=== PATIENT | male | born 1960 | race Caucasian/White ===

== ENCOUNTER 2017-09-27 06:04 | Inpatient (IN) | payer BC ==
[~2017-09-27 06:04] MED LIST: Lactated Ringers 1,000 ML IV SCH; Lidocaine 1%/Sod Bicarbonate in NS 8.4% 1 ML Syringe IV PRN; Sodium Chloride 0.9% 10 ML Syringe FLUSH PRN
[2017-09-27] MEDS ORDERED: Vancomycin 1 GM SDV ONE (06:18)
[2017-09-27] MEDS ORDERED: Cyclobenzaprine 10 MG Tab PO PRN (06:23)
[2017-09-27] MEDS ORDERED: Ketorolac 15 MG/ML SDV IVPUSH PRN (06:23)
[2017-09-27] MEDS ORDERED: Magnesium Hydroxide 400 MG/5 ML Susp 30 ML Cup PO PRN (06:24)
[2017-09-27] MEDS ORDERED: Naloxone 0.4 MG/ML SDV IVPUSH PRN (06:24)
[2017-09-27] MEDS ORDERED: diphenhydrAMINE 50 MG/ML SDV IVPUSH PRN (06:24)
[2017-09-27] MEDS ORDERED: Morphine 4 MG/ML Syringe IVPUSH PRN (06:24)
[2017-09-27] MEDS ORDERED: Sennosides 8.6 MG Tab PO PRN (06:24)
[2017-09-27] MEDS ORDERED: Bisacodyl 5 MG Tab PO PRN (06:24)
[2017-09-27] MEDS ORDERED: ceFAZolin 2 GM in Premix Bag 1 BAG IV SCH (06:30)
[2017-09-27] MEDS ORDERED: Morphine PF 1 MG/ML Amp ONE (06:38)
[2017-09-27] MEDS ORDERED: Ondansetron 4 MG/2 ML SDV ONE (06:45)
[2017-09-27] MEDS ORDERED: fentaNYL 100 MCG/2 ML SDV ONE (06:46)
[2017-09-27] MEDS ORDERED: Midazolam 1 MG/ML 2 ML SDV ONE (06:46)
[2017-09-27] MEDS ORDERED: Propofol 200 MG/20 ML SDV ONE ×4 (06:46→08:54)
[2017-09-27] MEDS ORDERED: ceFAZolin 1 GM Vial ONE (06:47)
--- NOTE | 2017-09-27 06:58 | PCM.PREANE ---
Preanesthetic Assessment - Anesthesia/Transfusion/Family Hx Anesthesia History: Prior Anesthesia Without Reaction Family History of Anesthesia Reaction: No Transfusion History: No Prior Transfusion(s) - Review of Systems General: No Symptoms Pulmonary: No Symptoms Cardiovascular: No Symptoms Gastrointestinal: No Symptoms Neurological: No Symptoms Other: Reports: None - Physical Assessment NPO Status Date: 09/26/17 NPO Status Time: 23:30 Pulse: 84 O2 Sat by Pulse Oximetry: 91 Respiratory Rate: 16 Blood Pressure: 122/90 Temperature: 36.6 C Vital Signs: Last Vital Signs Temp 36.6 C 09/27/17 06:15 Pulse 84 09/27/17 06:15 Resp 16 09/27/17 06:15 BP 122/90 09/27/17 06:15 Pulse Ox 91 L 09/27/17 06:15 Height: 1.88 m Weight: 93.894 kg ASA Class: 2 Mental Status: Alert & Oriented x3 Airway Class: Mallampati = 1 Dentition: Reports: Normal Dentition, August(s) Thyro-Mental Finger Breadths: 3 Mouth Opening Finger Breadths: 3 ROM/Head Extension: Full Lungs: Clear to Auscultation, Normal Respiratory Effort Cardiovascular: Regular Rate, Regular Rhythm, No Murmurs - Lab Values: Laboratory Last Values MRSA (PCR) Negative 09/07/17 10:20 - Allergies Allergies/Adverse Reactions: Allergies Allergy/AdvReac Type Severity Reaction Status Date / Time amoxicillin Allergy Fever Verified 09/26/17 11:08 - Acknowledgements Anesthesia Type Planned: Spinal Pt an Appropriate Candidate for the Planned Anesthesia: Yes Alternatives and Risks of Anesthesia Discussed w Pt/Guardian: Yes Pt/Guardian Understands and Agrees with Anesthesia Plan: Yes PreAnesthesia Questionnaire HEENT History: Reports: Allergic Rhinitis, Impaired Vision, Other (See Below) Other HEENT History: otitis externa, wears glasses Cardiovascular History: Reports: High Cholesterol Respiratory History: Reports: Other (See Below) Other Respiratory History: bronchitis, cough Gastrointestinal History: Reports: None Genitourinary History: Reports: None [employer]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 Neurological History: Reports: Other (See Below) Other Neuro History: dizziness Psychiatric History: Reports: None Endocrine/Metabolic History: Reports: None Hematologic History: Reports: None Immunologic History: Reports: None Oncologic (Cancer) History: Reports: None Dermatologic History: Reports: None - Past Surgical History Head Surgeries/Procedures: Reports: None HEENT Surgical History: Reports: Naso-Sinus Surgery, Tonsillectomy Cardiovascular Surgical History: Reports: None Respiratory Surgical History: Reports: None GI Surgical History: Reports: Colonoscopy Male Surgical History: Reports: Vasectomy Endocrine Surgical History: Reports: None Musculoskeletal Surgical History: Reports: Other (See Below) Other Musculoskeletal Surgeries/Procedures:: foot surgery, knee surgery Dermatological Surgical History: Reports: None - SUBSTANCE USE Smoking Status *Q: Never Smoker Second Hand Smoke Exposure: No Recreational Drug Use History: No - HOME MEDS Home Medications: Home Meds Cholecalciferol (Vitamin D3) [Vitamin D3] 1,000 units PO DAILY 09/26/17 [History ] Fluticasone Propionate [Flonase] 1 spray NASBOTH DAILY 09/26/17 [History] Omeprazole Magnesium [Prilosec Otc] 20 mg PO Q48H 09/26/17 [History] - CURRENT (IN HOUSE) MEDS Current Meds: Current Medications Aspirin (Ecotrin) 325 mg PO BID NA Bisacodyl (Dulcolax) 5 mg PO DAILY PRN PRN Reason: Constipation Morphine Sulfate 8 mg/Epinephrine HCl 0.3 mg/Cefuroxime Sodium 750 mg/Ketorolac Tromethamine 30 mg/Sodium Chloride 27.9 ml 0 mg .XX ONETIME ONE Stop: 09/27/17 06:24 Cyclobenzaprine HCl (Flexeril) 10 mg PO TID PRN PRN Reason: Spasms Diphenhydramine HCl (Benadryl) 25 mg IVPUSH Q4H PRN PRN Reason: Nausea Docusate Sodium (Colace) 100 mg PO BID NA Famotidine (Pepcid) 20 mg PO Q12H [facility] Lactated Ringer's (Ringers, Lactated) 1,000 mls @ 125 mls/hr IV ASDIRECTED [facility] Last Admin: 09/27/17 06:35 Dose: 125 mls/hr Cefazolin Sodium/Dextrose 2 gm (/ Premix) 50 mls @ 100 mls/hr IV Q8H [facility] Stop: 09/27/17 22:59 Ketorolac Tromethamine (Toradol) 15 mg IVPUSH Q6H PRN PRN Reason: Pain Lidocaine/Sodium Bicarbonate (Buffered Lidocaine 1% In Ns 8.4%) 0.25 ml IV ONETIME PRN PRN Reason: Prior to IV Start Last Admin: 09/27/17 06:35 Dose: 0.25 ml Magnesium Hydroxide (Milk Of Magnesia) 30 ml PO BID PRN PRN Reason: Constipation Morphine Sulfate (Morphine) 2 mg IVPUSH Q2H PRN PRN Reason: Breakthrough Pain Naloxone HCl (Narcan) 0.1 mg IVPUSH Q5M PRN PRN Reason: Oversedation Ondansetron HCl (Zofran) 4 mg IVPUSH Q6H PRN PRN Reason: Nausea/Vomiting Oxycodone/Acetaminophen (Percocet 325-5 Mg) 1 - 2 tab PO Q4H PRN PRN Reason: Pain Senna (Senna) 8.6 mg PO BID PRN PRN Reason: Constipation Sodium Chloride (Saline Flush) 10 ml FLUSH ASDIRECTED PRN PRN Reason: Keep Vein Open Discontinued Medications Bupivacaine HCl (Marcaine 0.25%) Confirm Administered Dose 30 ml .ROUTE .STK- MED ONE Stop: 09/27/17 06:19 Cefazolin Sodium (Ancef) Confirm Administered Dose 2 gm .ROUTE .STK-MED ONE Stop: 09/27/17 06:19 Cefazolin Sodium (Ancef) Confirm Administered Dose 2 gm .ROUTE .STK-MED ONE Stop: 09/27/17 06:48 Fentanyl (Sublimaze) Confirm Administered Dose 100 mcg .ROUTE .STK-MED ONE Stop: 09/27/17 06:47 Iodine (Iodine 2% Mild Tincture) Confirm Administered Dose 30 ml .ROUTE .STK- MED ONE Stop: 09/27/17 06:19 Midazolam HCl (Versed 1 Mg/Ml) Confirm Administered Dose 2 mg .ROUTE .STK-MED ONE Stop: 09/27/17 06:47 Morphine Sulfate (Duramorph Pf) Confirm Administered Dose 1 mg .ROUTE .STK-MED ONE Stop: 09/27/17 06:39 Ondansetron HCl (Zofran) Confirm Administered Dose 4 mg .ROUTE .STK-MED ONE Stop: 09/27/17 06:46 Propofol (Diprivan 20 Ml) Confirm Administered Dose 200 mg .ROUTE .STK-MED ONE Stop: 09/27/17 06:47 Tranexamic Acid (Cyklokapron) Confirm Administered Dose 1,000 mg .ROUTE .STK- MED ONE Stop: 09/27/17 06:19 Vancomycin HCl (Vancomycin) Confirm Administered Dose 1 gm .ROUTE .STK-MED ONE Stop: 09/27/17 06:19
[2017-09-27] MEDS ORDERED: Lactated Ringers 1,000 ML ONE ×2 (07:36→09:02)
[2017-09-27] MEDS: Bupivacaine 0.25% 30 ML SDV ONE ×2 (07:48→08:28)
[2017-09-27] MEDS: ceFAZolin 1 GM Vial ONE ×2 (07:49→08:23)
[2017-09-27] MEDS: Iodine/Sodium Iodide 2% Tincture 30 ML Bottle ONE ×2 (07:49→08:19)
[2017-09-27] MEDS: Morphine 8 MG, EPINEPHrine 0.3 MG, Cefuroxime 750 MG, Ketorolac 30 MG, Sodium Chloride ... ONE ×10 (08:27→21:18)
[2017-09-27] MEDS ORDERED: fentaNYL 100 MCG/2 ML SDV IVPUSH PRN (09:17)
--- NOTE | 2017-09-27 09:19 | PCM.POSTAN ---
POST ANESTHESIA ASSESSMENT - MENTAL STATUS Mental Status: Somnolent - VITAL SIGNS Pulse Rate: 90 SaO2: 95 Resp Rate: 11 Blood Pressure: 119/67 Temperature: 36.1 C - RESPIRATORY Respiratory Status: Respiratory Rate WNL, Airway Patent, O2 Saturation Stable, Supplemental Oxygen - CARDIOVASCULAR CV Status: Pulse Rate WNL, Blood Pressure Stable - GASTROINTESTINAL GI Status: No Symptoms - PAIN Pain Score: 0 - POST OP HYDRATION Hydration Status: Adequate & Stable - OBSERVATIONS Free Text/Narrative:: no anesthesia complications noted
[2017-09-27] MEDS ORDERED: Pantoprazole 40 MG Tab.CR PO SCH (11:00)
--- NOTE | 2017-09-27 11:19 | CR ---
Left knee: AP and lateral views of the left knee were obtained. Comparison: No prior knee exam. Knee prosthesis is seen. Components are aligned. Soft tissue air is noted from the surgical procedure. Underlying bony structures are intact. Impression: 1. Satisfactory radiographic appearance of recently placed left knee prosthesis. Diagnostic code #2
[2017-09-27] MEDS: Acetaminophen/oxyCODONE 325-5 MG Tab PO PRN ×3 (14:20→23:45)
[2017-09-27] MEDS: ceFAZolin 2 GM in Premix Bag 1 BAG IV SCH ×2 (14:21→23:41)
[2017-09-27] MEDS: Ondansetron 4 MG/2 ML SDV IVPUSH PRN ×2 (15:23→23:56)
[2017-09-27] MEDS: Famotidine 20 MG Tab PO SCH ×2 (18:38→21:18)
--- NOTE | 2017-09-27 20:28 | PCM.CONS ---
H&P History of Present Illness - General Date of Service: 09/27/17 Admit Problem/Dx: Admission Diagnosis/Problem Admission Diagnosis/Problem Osteoarthritis of knee Source of Information: Patient, Old Records, RN, RN Notes Reviewed, Other ( Surgical notes) History Limitations: Reports: No Limitations - History of Present Illness Initial Comments - Free Text/Narative: Ric Bowens is a 57 yo male patient of Dr. Carvalho who is post-operative day 0 of left TKA. Hospital medicine was consulted for post-operative medical care. At this time he is resting comfortably in bed. Pain is controlled. He denies any chest pain, shortness of breath, palpitations, or vomiting. He did report some nausea about a hour ago which has resolved. He carries a history of: Impaired vision and HLD. He was never a smoker. He is a full code. His primary care provider is Dr. Frost. Left Knee Pain Score (Numeric/FACES): 0 - Related Data Allergies/Adverse Reactions: Allergies Allergy/AdvReac Type Severity Reaction Status Date / Time amoxicillin Allergy Fever Verified 09/27/17 17:52 Home Medications: Home Meds Cholecalciferol (Vitamin D3) [Vitamin D3] 1,000 units PO DAILY 09/26/17 [History ] Fluticasone Propionate [Flonase] 1 spray NASBOTH DAILY 09/26/17 [History] Omeprazole Magnesium [Prilosec Otc] 20 mg PO Q48H 09/26/17 [History] Past Medical History HEENT History: Reports: Allergic Rhinitis, Impaired Vision, Other (See Below) Other HEENT History: otitis externa, wears glasses Cardiovascular History: Reports: High Cholesterol Respiratory History: Reports: Other (See Below) Other Respiratory History: bronchitis, cough Gastrointestinal History: Reports: None Genitourinary History: Reports: None 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 Neurological History: Reports: Other (See Below) Other Neuro History: dizziness Psychiatric History: Reports: None Endocrine/Metabolic History: Reports: None Hematologic History: Reports: None Immunologic History: Reports: None Oncologic (Cancer) History: Reports: None Dermatologic History: Reports: None - Past Surgical History Head Surgeries/Procedures: Reports: None HEENT Surgical History: Reports: Naso-Sinus Surgery, Tonsillectomy Cardiovascular Surgical History: Reports: None Respiratory Surgical History: Reports: None GI Surgical History: Reports: Colonoscopy Male Surgical History: Reports: Vasectomy Endocrine Surgical History: Reports: None Musculoskeletal Surgical History: Reports: Other (See Below) Other Musculoskeletal Surgeries/Procedures:: foot surgery, knee surgery Dermatological Surgical History: Reports: None Social & Family History - Tobacco Use Smoking Status *Q: Never Smoker Second Hand Smoke Exposure: No - Caffeine Use Caffeine Use: Reports: Soda - Recreational Drug Use Recreational Drug Use: No H&P Review of Systems - Review of Systems: Review Of Systems: See Below General: Reports: No Symptoms. Denies: Fever, Chills, Malaise, Weakness, Fatigue HEENT: Reports: No Symptoms. Denies: Rhinitis, Sinus Congestion, Sore Throat, Visual Changes Pulmonary: Reports: No Symptoms. Denies: Shortness of Breath, Wheezing, Pleuritic Chest Pain, Cough, Sputum Cardiovascular: Reports: No Symptoms, Blood Pressure Problem. Denies: Chest Pain, Palpitations, Dyspnea on Exertion, Lightheadedness Gastrointestinal: Reports: Nausea (resolved ). Denies: Constipation, Diarrhea, Vomiting Genitourinary: Reports: No Symptoms Musculoskeletal: Reports: Joint Pain (left knee - currently absent. ) Skin: Reports: No Symptoms Psychiatric: Reports: No Symptoms Neurological: Reports: No Symptoms Hematologic/Lymphatic: Reports: No Symptoms Immunologic: Reports: No Symptoms Exam - Exam Exam: See Below - Vital Signs Vital Signs: Last Vital Signs Temp 99.7 F 09/27/17 18:35 Pulse 83 09/27/17 18:35 Resp 14 09/27/17 18:35 BP 105/66 09/27/17 18:35 Pulse Ox 94 L 09/27/17 18:35 Weight: 207 lb - Exam Quality Assessment: Supplemental Oxygen, DVT Prophylaxis General: Alert, Oriented, Cooperative. No: Mild Distress HEENT: Conjunctiva Clear, EACs Clear, EOMI, Hearing Intact, Mucosa Moist & [place] , Nares Patent, Normal Nasal Septum, Posterior Pharynx Clear, PERRLA Neck: Supple, Trachea Midline. No: JVD, Thyromegaly Lungs: Clear to Auscultation, Normal Respiratory Effort Cardiovascular: Regular Rate, Regular Rhythm GI/Abdominal Exam: Normal Bowel Sounds, Soft, Non-Tender, No Organomegaly, No Distention, No Abnormal Bruit, No Mass, Pelvis Stable (Male) Exam: Deferred Rectal (Males) Exam: Deferred Back Exam: Normal Inspection, Full Range of Motion Extremities: No Pedal Edema, Normal Capillary Refill, Other (Micky bandage in place on left leg. Bandage is dry and intact. Cooling device in place. ) Peripheral Pulses: 3+: Radial (L), Radial (R), Posterior Tibial (L), Posterior Tibial (R), Dorsalis Pedis (L), Dorsalis Pedis (R) Skin: Warm, Dry, Intact Neurological: Cranial Nerves Intact (Grossly) Neuro Extensive - Mental Status: Alert, Oriented x3, Normal Mood/Affect, Normal Cognition, Memory Intact Neuro Extensive - Motor, Sensory, Reflexes: CN II-XII Intact (Grossly) Psychiatric: Alert, Normal Affect, Normal Mood Consult PN Assessment/Plan POD#: 0 Procedures: Procedures ASSAY OF BLOOD LIPOPROTEIN (01/02/16) ASSAY OF LIPOPROTEIN (01/02/16) ASSAY OF PREALBUMIN (09/01/17) ASSAY OF SERUM ALBUMIN (09/01/17) CHEST X-RAY 2VW FRONTAL&LATL (02/22/17) COMPLETE CBC W/AUTO DIFF WBC (09/01/17) METABOLIC PANEL TOTAL CA (09/01/17) PROTHROMBIN TIME (09/01/17) ROUTINE VENIPUNCTURE (09/01/17) THROMBOPLASTIN TIME PARTIAL (09/01/17) (1) S/P total knee arthroplasty SNOMED Code(s): 9865300937265, 7892598851420 Code(s): Z96.659 - PRESENCE OF UNSPECIFIED ARTIFICIAL KNEE JOINT Priority: High Current Visit: Yes Qualifiers: Laterality: left Qualified Code(s): Z96.652 - Presence of left artificial knee joint (2) Osteoarthritis SNOMED Code(s): 834924557 Code(s): M19.90 - UNSPECIFIED OSTEOARTHRITIS, UNSPECIFIED SITE Priority: High Current Visit: Yes Qualifiers: Osteoarthritis location: knee Osteoarthritis type: primary Laterality: left Qualified Code(s): M17.12 - Unilateral primary osteoarthritis, left knee (3) HLD (hyperlipidemia) SNOMED Code(s): 50061350 Code(s): E78.5 - HYPERLIPIDEMIA, UNSPECIFIED Priority: Low Current Visit : No Qualifiers: Hyperlipidemia type: unspecified Qualified Code(s): E78.5 - Hyperlipidemia , unspecified Problem List Initiated/Reviewed/Updated: Yes Plan: I/P: Acute: S/P left total knee arthroplasty - post-operative day 0 -DVT prophylaxis and pain management per primary care team -PT/OT -IS/RT -Monitor oxygen saturation -Titrate oxygen as needed -Vital signs stable Osteoarthritis of left knee -Pain management per primary care team Chronic: Vision impairment HLD Plan: SW/CM for discharge planning GI prophylaxis Home medications as indicated Other orders as listed above Routine AM labs He is a full code. His PCP is Dr. Frost. Thank you for allowing us to participate in the care of this patient!! Requesting Provider: Dr. Carvalho Date Consult Requested: 09/27/17 Reason for Consult: Post-operative medical management Patient History Reviewed: Yes Admission H&P Reviewed: Yes
[2017-09-27] MEDS: Docusate Sodium 100 MG Cap PO SCH (21:19)
[2017-09-28] MEDS: Acetaminophen/oxyCODONE 325-5 MG Tab PO PRN ×3 (05:53→14:23)
[2017-09-28] MEDS: Famotidine 20 MG Tab PO SCH (05:54)
[2017-09-28] MEDS: ceFAZolin 2 GM in Premix Bag 1 BAG IV SCH (06:00)
--- NOTE | 2017-09-28 07:35 | PCM.CONSN ---
- General Info Date of Service: 09/28/17 Admission Dx/Problem (Free Text): Admission Diagnosis/Problem Admission Diagnosis/Problem Osteoarthritis of knee S/P Lt TKA, POD #1 Doing well, pain controlled, no nausea. Functional Status: Reports: Pain Controlled, Tolerating Diet, Ambulating, Urinating, Incentive Spirometry - Review of Systems General: Reports: No Symptoms HEENT: Reports: No Symptoms Pulmonary: Reports: No Symptoms Cardiovascular: Reports: No Symptoms Gastrointestinal: Reports: No Symptoms Genitourinary: Reports: No Symptoms Musculoskeletal: Reports: Leg Pain Skin: Reports: No Symptoms Neurological: Reports: No Symptoms Psychiatric: Reports: No Symptoms - Patient Data Vitals - Most Recent: Last Vital Signs Temp 99.1 F 09/28/17 06:00 Pulse 78 09/28/17 04:35 Resp 16 09/28/17 06:57 BP 97/53 L 09/28/17 04:35 Pulse Ox 96 09/28/17 06:57 Weight - Most Recent: 207 lb I&O - Last 24 Hours: Intake & Output 09/27/17 09/28/17 09/28/17 22:59 06:59 14:59 Intake Total 1750 2200 Output Total 225 150 Balance 1525 2050 Med Orders - Current: Current Medications Aspirin (Ecotrin) 325 mg PO BID [facility] Bisacodyl (Dulcolax) 5 mg PO DAILY PRN PRN Reason: Constipation Cholecalciferol (Vitamin D3) 1,000 units PO DAILY [facility] Cyclobenzaprine HCl (Flexeril) 10 mg PO TID PRN PRN Reason: Spasms Last Admin: 09/28/17 01:06 Dose: 10 mg Diphenhydramine HCl (Benadryl) 25 mg IVPUSH Q4H PRN PRN Reason: Nausea Docusate Sodium (Colace) 100 mg PO BID [facility] Last Admin: 09/27/17 21:19 Dose: 100 mg Flunisolide (Nasalide Nasal [place]) 0 ml NASBOTH BID [facility] Last Admin: 09/27/17 21:19 Dose: 2 spray Ketorolac Tromethamine (Toradol) 15 mg IVPUSH Q6H PRN PRN Reason: Pain Last Admin: 09/27/17 23:58 Dose: 15 mg Magnesium Hydroxide (Milk Of Magnesia) 30 ml PO BID PRN PRN Reason: Constipation Morphine Sulfate (Morphine) 2 mg IVPUSH Q2H PRN PRN Reason: Breakthrough Pain Naloxone HCl (Narcan) 0.1 mg IVPUSH Q5M PRN PRN Reason: Oversedation Ondansetron HCl (Zofran) 4 mg IVPUSH Q6H PRN PRN Reason: Nausea/Vomiting Last Admin: 09/27/17 23:56 Dose: 4 mg Oxycodone/Acetaminophen (Percocet 325-5 Mg) 1 - 2 tab PO Q4H PRN PRN Reason: Pain Last Admin: 09/28/17 05:53 Dose: 2 tab Pantoprazole Sodium (Protonix) 40 mg PO Q48H NA Last Admin: 09/27/17 13:04 Dose: 40 mg Senna (Senna) 8.6 mg PO BID PRN PRN Reason: Constipation Sodium Chloride (Saline Flush) 10 ml FLUSH ASDIRECTED PRN PRN Reason: Keep Vein Open Discontinued Medications Bupivacaine HCl (Marcaine 0.25%) Confirm Administered Dose 30 ml .ROUTE .STK- MED ONE Stop: 09/27/17 06:19 Last Admin: 09/27/17 08:28 Dose: 30 ml Cefazolin Sodium (Ancef) Confirm Administered Dose 2 gm .ROUTE .STK-MED ONE Stop: 09/27/17 06:19 Last Admin: 09/27/17 08:23 Dose: 2 gm Cefazolin Sodium (Ancef) Confirm Administered Dose 2 gm .ROUTE .STK-MED ONE Stop: 09/27/17 06:48 Morphine Sulfate 8 mg/Epinephrine HCl 0.3 mg/Cefuroxime Sodium 750 mg/Ketorolac Tromethamine 30 mg/Sodium Chloride 27.9 ml 0 mg .XX ONETIME ONE Stop: 09/27/17 07:31 Last Admin: 09/27/17 21:18 Dose: Not Given Famotidine (Pepcid) 20 mg PO Q12H [facility] Last Admin: 09/28/17 05:54 Dose: 20 mg Fentanyl (Sublimaze) Confirm Administered Dose 100 mcg .ROUTE .STK-MED ONE Stop: 09/27/17 06:47 Fentanyl (Sublimaze) 50 mcg IVPUSH Q5M PRN PRN Reason: PAIN Stop: 09/27/17 11:00 Lactated Ringer's (Ringers, Lactated) 1,000 mls @ 125 mls/hr IV ASDIRECTED [facility] Last Admin: 09/27/17 06:35 Dose: 125 mls/hr Lactated Ringer's (Ringers, Lactated) Confirm Administered Dose 1,000 mls @ as directed .ROUTE .STK-MED ONE Stop: 09/27/17 07:37 Lactated Ringer's (Ringers, Lactated) Confirm Administered Dose 1,000 mls @ as directed .ROUTE .STK-MED ONE Stop: 09/27/17 09:03 Cefazolin Sodium/Dextrose 2 gm (/ Premix) 50 mls @ 100 mls/hr IV Q8H [facility] Stop: 09/28/17 07:29 Last Admin: 09/28/17 06:00 Dose: 100 mls/hr Iodine (Iodine 2% Mild Tincture) Confirm Administered Dose 30 ml .ROUTE .STK- MED ONE Stop: 09/27/17 06:19 Last Admin: 09/27/17 08:19 Dose: 18 ml Lidocaine/Sodium Bicarbonate (Buffered Lidocaine 1% In Ns 8.4%) 0.25 ml IV ONETIME PRN PRN Reason: Prior to IV Start Last Admin: 09/27/17 06:35 Dose: 0.25 ml Midazolam HCl (Versed 1 Mg/Ml) Confirm Administered Dose 2 mg .ROUTE .STK-MED ONE Stop: 09/27/17 06:47 Morphine Sulfate (Duramorph Pf) Confirm Administered Dose 1 mg .ROUTE .STK-MED ONE Stop: 09/27/17 06:39 Ondansetron HCl (Zofran) Confirm Administered Dose 4 mg .ROUTE .STK-MED ONE Stop: 09/27/17 06:46 Propofol (Diprivan 20 Ml) Confirm Administered Dose 200 mg .ROUTE .STK-MED ONE Stop: 09/27/17 06:47 Propofol (Diprivan 20 Ml) Confirm Administered Dose 200 mg .ROUTE .STK-MED ONE Stop: 09/27/17 07:45 Propofol (Diprivan 20 Ml) Confirm Administered Dose 200 mg .ROUTE .STK-MED ONE Stop: 09/27/17 08:19 Propofol (Diprivan 20 Ml) Confirm Administered Dose 200 mg .ROUTE .STK-MED ONE Stop: 09/27/17 08:55 Tranexamic Acid (Cyklokapron) Confirm Administered Dose 1,000 mg .ROUTE .STK- MED ONE Stop: 09/27/17 06:19 Last Admin: 09/27/17 08:36 Dose: 1,000 mg Vancomycin HCl (Vancomycin) Confirm Administered Dose 1 gm .ROUTE .STK-MED ONE Stop: 09/27/17 06:19 Last Admin: 09/27/17 08:30 Dose: 1 gm - Exam Quality Assessment: Supplemental Oxygen (2L at time of note), DVT Prophylaxis General: Alert, Oriented, Cooperative, No Acute Distress HEENT: Pupils Equal, EOMI, Mucous Membr. Moist/[place] Neck: Supple Lungs: Clear to Auscultation, Normal Respiratory Effort Cardiovascular: Regular Rate, Regular Rhythm GI/Abdominal Exam: Normal Bowel Sounds, Soft, Non-Tender (Male) Exam: Deferred Extremities: Other (lt knee with verito wrap, ice. CMS + and = bilat to LE) Peripheral Pulses: 2+: Dorsalis Pedis (L), Dorsalis Pedis (R) Neurological: No New Focal Deficit Psy/Mental Status: Alert, Normal Affect, Normal Mood Consult PN Assessment/Plan POD#: 1 Procedures: Procedures ASSAY OF BLOOD LIPOPROTEIN (01/02/16) ASSAY OF LIPOPROTEIN (01/02/16) ASSAY OF PREALBUMIN (09/01/17) ASSAY OF SERUM ALBUMIN (09/01/17) CHEST X-RAY 2VW FRONTAL&LATL (02/22/17) COMPLETE CBC W/AUTO DIFF WBC (09/01/17) METABOLIC PANEL TOTAL CA (09/01/17) PROTHROMBIN TIME (09/01/17) ROUTINE VENIPUNCTURE (09/01/17) THROMBOPLASTIN TIME PARTIAL (09/01/17) (1) Osteoarthritis SNOMED Code(s): 054470658 Code(s): M19.90 - UNSPECIFIED OSTEOARTHRITIS, UNSPECIFIED SITE Priority: High Current Visit: Yes Qualifiers: Osteoarthritis location: knee Osteoarthritis type: primary Laterality: left Qualified Code(s): M17.12 - Unilateral primary osteoarthritis, left knee (2) S/P total knee arthroplasty SNOMED Code(s): 3235588977204, 9660767774459 Code(s): Z96.659 - PRESENCE OF UNSPECIFIED ARTIFICIAL KNEE JOINT Priority: High Current Visit: Yes Qualifiers: Laterality: left Qualified Code(s): Z96.652 - Presence of left artificial knee joint (3) HLD (hyperlipidemia) SNOMED Code(s): 64883369 Code(s): E78.5 - HYPERLIPIDEMIA, UNSPECIFIED Priority: Low Current Visit : No Qualifiers: Hyperlipidemia type: unspecified Qualified Code(s): E78.5 - Hyperlipidemia , unspecified Problem List Initiated/Reviewed/Updated: Yes Plan: I/P: S/P total knee arthroplasty, POD # 1, Cte - Pain management and DVT prophylax - PT/OT - RT/IS - Hgb 10.7 - VSS Chronic conditions: Hyperlipidemia Other: GI Prophylax CM/SW for DC planning- okay from hospitalist standpoint for discharge home today. Patient is full Code status.
[2017-09-28] MEDS: Docusate Sodium 100 MG Cap PO SCH (08:32)
[2017-09-28] MEDS ORDERED: Aspirin 325 MG Tab.EC PO SCH (09:00)
[2017-09-28] MEDS ORDERED: Cholecalciferol (Vitamin D3) 1,000 Unit Tab PO SCH (09:00)
[2017-09-28] MEDS ORDERED: Famotidine 20 MG Tab PO SCH (09:45)
--- NOTE | 2017-09-28 14:47 | PCM.SURGPN ---
- General Info Date of Service: 09/28/17 POD#: 1 Functional Status: Reports: Pain Controlled, Tolerating Diet, Ambulating, Urinating, Incentive Spirometry - Review of Systems Musculoskeletal: Reports: Other (The pt states his pain is controlled. He is prepared for discharge to home.) - Patient Data Vitals - Most Recent: Last Vital Signs Temp 98.8 F 09/28/17 12:30 Pulse 79 09/28/17 12:30 Resp 18 09/28/17 12:30 BP 107/71 09/28/17 12:30 Pulse Ox 93 L 09/28/17 12:30 Weight - Most Recent: 207 lb I&O - Last 24 Hours: Intake & Output 09/27/17 09/28/17 09/28/17 22:59 06:59 14:59 Intake Total 1750 2200 2580 Output Total 225 150 150 Balance 1525 2050 2430 Lab Results Last 24 Hrs: Laboratory Results - last 24 hr 09/28/17 09/28/17 Range/Units 07:25 07:25 WBC 7.46 (4.23-9.07) K/mm3 RBC 4.06 L (4.63-6.08) M/mm3 Hgb 10.7 L (13.7-17.5) gm/L Hct 32.5 L (40.1-51.0) % MCV 80.0 (79.0-92.2) fl MCH 26.4 (25.7-32.2) pg MCHC 32.9 (32.2-35.5) g/dl RDW Std Deviation 38.6 (35.1-43.9) fL Plt Count 162 L (163-337) K/mm3 MPV 9.3 L (9.4-12.3) fl Sodium 138 (136-145) mEq/L Potassium 4.0 (3.5-5.1) mEq/L Chloride 105 (98-107) mEq/L Carbon Dioxide 29 (21-32) mEq/L Anion Gap 8.0 (5-15) BUN 16 (7-18) mg/dL Creatinine 1.1 (0.7-1.3) mg/dL Est Cr Clr Drug Dosing 87.18 mL/min Estimated GFR (MDRD) > 60 (>60) mL/min BUN/Creatinine Ratio 14.5 (14-18) Glucose 124 H (74-106) mg/dL Calcium 8.5 (8.5-10.1) mg/dL Total Bilirubin 0.6 (0.2-1.0) mg/dL AST 13 L (15-37) U/L ALT 28 (16-63) U/L Alkaline Phosphatase 53 (46-116) U/L Total Protein 5.6 L (6.4-8.2) g/dl Albumin 2.9 L (3.4-5.0) g/dl Globulin 2.7 gm/dL Albumin/Globulin Ratio 1.1 (1-2) Med Orders - Current: Current Medications Aspirin (Ecotrin) 325 mg PO BID [facility] Last Admin: 09/28/17 08:32 Dose: 325 mg Bisacodyl (Dulcolax) 5 mg PO DAILY PRN PRN Reason: Constipation Cholecalciferol (Vitamin D3) 1,000 units PO DAILY [facility] Last Admin: 09/28/17 08:32 Dose: 1,000 units Cyclobenzaprine HCl (Flexeril) 10 mg PO TID PRN PRN Reason: Spasms Last Admin: 09/28/17 01:06 Dose: 10 mg Diphenhydramine HCl (Benadryl) 25 mg IVPUSH Q4H PRN PRN Reason: Nausea Docusate Sodium (Colace) 100 mg PO BID [facility] Last Admin: 09/28/17 08:32 Dose: 100 mg Flunisolide (Nasalide Nasal [place]) 0 ml NASBOTH BID [facility] Last Admin: 09/28/17 08:32 Dose: 2 spray Ketorolac Tromethamine (Toradol) 15 mg IVPUSH Q6H PRN PRN Reason: Pain Last Admin: 09/27/17 23:58 Dose: 15 mg Magnesium Hydroxide (Milk Of Magnesia) 30 ml PO BID PRN PRN Reason: Constipation Morphine Sulfate (Morphine) 2 mg IVPUSH Q2H PRN PRN Reason: Breakthrough Pain Naloxone HCl (Narcan) 0.1 mg IVPUSH Q5M PRN PRN Reason: Oversedation Ondansetron HCl (Zofran) 4 mg IVPUSH Q6H PRN PRN Reason: Nausea/Vomiting Last Admin: 09/27/17 23:56 Dose: 4 mg Oxycodone/Acetaminophen (Percocet 325-5 Mg) 1 - 2 tab PO Q4H PRN PRN Reason: Pain Last Admin: 09/28/17 14:23 Dose: 2 tab Pantoprazole Sodium (Protonix) 40 mg PO Q48H [facility] Last Admin: 09/27/17 13:04 Dose: 40 mg Senna (Senna) 8.6 mg PO BID PRN PRN Reason: Constipation Sodium Chloride (Saline Flush) 10 ml FLUSH ASDIRECTED PRN PRN Reason: Keep Vein Open Discontinued Medications Bupivacaine HCl (Marcaine 0.25%) Confirm Administered Dose 30 ml .ROUTE .STK- MED ONE Stop: 09/27/17 06:19 Last Admin: 09/27/17 08:28 Dose: 30 ml Cefazolin Sodium (Ancef) Confirm Administered Dose 2 gm .ROUTE .STK-MED ONE Stop: 09/27/17 06:19 Last Admin: 09/27/17 08:23 Dose: 2 gm Cefazolin Sodium (Ancef) Confirm Administered Dose 2 gm .ROUTE .STK-MED ONE Stop: 09/27/17 06:48 Morphine Sulfate 8 mg/Epinephrine HCl 0.3 mg/Cefuroxime Sodium 750 mg/Ketorolac Tromethamine 30 mg/Sodium Chloride 27.9 ml 0 mg .XX ONETIME ONE Stop: 09/27/17 07:31 Last Admin: 09/27/17 21:18 Dose: Not Given Famotidine (Pepcid) 20 mg PO Q12H [facility] Last Admin: 09/28/17 05:54 Dose: 20 mg Famotidine (Pepcid) 20 mg PO BID [facility] Last Admin: 09/28/17 09:57 Dose: 20 mg Fentanyl (Sublimaze) Confirm Administered Dose 100 mcg .ROUTE .STK-MED ONE Stop: 09/27/17 06:47 Fentanyl (Sublimaze) 50 mcg IVPUSH Q5M PRN PRN Reason: PAIN Stop: 09/27/17 11:00 Lactated Ringer's (Ringers, Lactated) 1,000 mls @ 125 mls/hr IV ASDIRECTED [facility] Last Admin: 09/27/17 06:35 Dose: 125 mls/hr Lactated Ringer's (Ringers, Lactated) Confirm Administered Dose 1,000 mls @ as directed .ROUTE .STK-MED ONE Stop: 09/27/17 07:37 Lactated Ringer's (Ringers, Lactated) Confirm Administered Dose 1,000 mls @ as directed .ROUTE .STK-MED ONE Stop: 09/27/17 09:03 Cefazolin Sodium/Dextrose 2 gm (/ Premix) 50 mls @ 100 mls/hr IV Q8H NA Stop: 09/28/17 07:29 Last Admin: 09/28/17 06:00 Dose: 100 mls/hr Iodine (Iodine 2% Mild Tincture) Confirm Administered Dose 30 ml .ROUTE .STK- MED ONE Stop: 09/27/17 06:19 Last Admin: 09/27/17 08:19 Dose: 18 ml Lidocaine/Sodium Bicarbonate (Buffered Lidocaine 1% In Ns 8.4%) 0.25 ml IV ONETIME PRN PRN Reason: Prior to IV Start Last Admin: 09/27/17 06:35 Dose: 0.25 ml Midazolam HCl (Versed 1 Mg/Ml) Confirm Administered Dose 2 mg .ROUTE .STK-MED ONE Stop: 09/27/17 06:47 Morphine Sulfate (Duramorph Pf) Confirm Administered Dose 1 mg .ROUTE .STK-MED ONE Stop: 09/27/17 06:39 Ondansetron HCl (Zofran) Confirm Administered Dose 4 mg .ROUTE .STK-MED ONE Stop: 09/27/17 06:46 Propofol (Diprivan 20 Ml) Confirm Administered Dose 200 mg .ROUTE .STK-MED ONE Stop: 09/27/17 06:47 Propofol (Diprivan 20 Ml) Confirm Administered Dose 200 mg .ROUTE .STK-MED ONE Stop: 09/27/17 07:45 Propofol (Diprivan 20 Ml) Confirm Administered Dose 200 mg .ROUTE .STK-MED ONE Stop: 09/27/17 08:19 Propofol (Diprivan 20 Ml) Confirm Administered Dose 200 mg .ROUTE .STK-MED ONE Stop: 09/27/17 08:55 Tranexamic Acid (Cyklokapron) Confirm Administered Dose 1,000 mg .ROUTE .STK- MED ONE Stop: 09/27/17 06:19 Last Admin: 09/27/17 08:36 Dose: 1,000 mg Vancomycin HCl (Vancomycin) Confirm Administered Dose 1 gm .ROUTE .STK-MED ONE Stop: 09/27/17 06:19 Last Admin: 09/27/17 08:30 Dose: 1 gm - Exam Wound/Incisions: Dressing Dry and Intact General: Alert, Cooperative, No Acute Distress Lungs: Normal Respiratory Effort Extremities: Other (NVS intact for BLE. Park's negative. Near full extension left knee. ) - Problem List Review Problem List Initiated/Reviewed/Updated: Yes - My Orders Last 24 Hours: Active Orders 24 hr Category Date Time Status Ready for Discharge [RC] PER UNIT ROUTINE Care 09/28/17 12:46 Active Aspirin [Ecotrin] Med 09/28/17 09:00 Active 325 mg PO BID Cholecalciferol (Vitamin D3) [Vitamin D3] Med 09/28/17 09:00 Active 1,000 units PO DAILY Docusate Sodium [Colace] Med 09/27/17 21:00 Active 100 mg PO BID Flunisolide [Nasalide Nasal [place]] Med 09/27/17 21:00 Active 0 ml NASBOTH BID Medication Orders Aspirin (Ecotrin) 325 mg PO BID [facility] Last Admin: 09/28/17 08:32 Dose: 325 mg Bisacodyl (Dulcolax) 5 mg PO DAILY PRN PRN Reason: Constipation Cholecalciferol (Vitamin D3) 1,000 units PO DAILY [facility] Last Admin: 09/28/17 08:32 Dose: 1,000 units Cyclobenzaprine HCl (Flexeril) 10 mg PO TID PRN PRN Reason: Spasms Last Admin: 09/28/17 01:06 Dose: 10 mg Diphenhydramine HCl (Benadryl) 25 mg IVPUSH Q4H PRN PRN Reason: Nausea Docusate Sodium (Colace) 100 mg PO BID [facility] Last Admin: 09/28/17 08:32 Dose: 100 mg Admin: 09/27/17 21:19 Dose: 100 mg Flunisolide (Nasalide Nasal [place]) 0 ml NASBOTH BID [facility] Last Admin: 09/28/17 08:32 Dose: 2 spray Admin: 09/27/17 21:19 Dose: 2 spray Ketorolac Tromethamine (Toradol) 15 mg IVPUSH Q6H PRN PRN Reason: Pain Last Admin: 09/27/17 23:58 Dose: 15 mg Magnesium Hydroxide (Milk Of Magnesia) 30 ml PO BID PRN PRN Reason: Constipation Morphine Sulfate (Morphine) 2 mg IVPUSH Q2H PRN PRN Reason: Breakthrough Pain Naloxone HCl (Narcan) 0.1 mg IVPUSH Q5M PRN PRN Reason: Oversedation Ondansetron HCl (Zofran) 4 mg IVPUSH Q6H PRN PRN Reason: Nausea/Vomiting Last Admin: 09/27/17 23:56 Dose: 4 mg Admin: 09/27/17 15:23 Dose: 4 mg Oxycodone/Acetaminophen (Percocet 325-5 Mg) 1 - 2 tab PO Q4H PRN PRN Reason: Pain Last Admin: 09/28/17 14:23 Dose: 2 tab Admin: 09/28/17 09:57 Dose: 2 tab Admin: 09/28/17 05:53 Dose: 2 tab Admin: 09/27/17 23:45 Dose: 2 tab Admin: 09/27/17 18:38 Dose: 2 tab Admin: 09/27/17 14:20 Dose: 2 tab Pantoprazole Sodium (Protonix) 40 mg PO Q48H NA Last Admin: 09/27/17 13:04 Dose: 40 mg Senna (Senna) 8.6 mg PO BID PRN PRN Reason: Constipation Sodium Chloride (Saline Flush) 10 ml FLUSH ASDIRECTED PRN PRN Reason: Keep Vein Open - Assessment Assessment (Free Text/Narrative):: POD#1 - left TKA - Plan Plan (Free Text/Narrative):: 1. Hgb 10.7. 2. ASA 325mg BID, frequent mobility, TEDs. 3. Discharge to home today. The pt will have the assistance of his . 4. Outpatient P.T. The pt's case was discussed with Dr. Carvalho today.
--- NOTE | 2017-10-01 15:39 | PCM.DCSUM1 ---
Discharge Summary - Hospital Course Brief History: Ric is a 57 yo male who underwent left TKA with Dr. Carvalho on . The procedure was completed under spinal anesthesia. The pt tolerated the procedure well and was admitted to the Medical-Surgical Unit. Medical management was provided by the Hospitalist service. The pt's Hospital course was uneventful. The pt's Hgb on POD#1 was 10.7. On POD#1, 325mg ASA BID was initiated for VTE prophylaxis. SCDs and TEDs were also ordered. A Mepilex dressing was placed at the incision site at the time of surgery and remained clean and dry. The pt participated in P.T. and O.T. and progressed well. The pt was allowed to WBAT. On POD#1, the pt was deemed appropriate to discharge to home with his . - Discharge Data Discharge Date: 09/28/17 Discharge Disposition: Home, Self-Care 01 Condition: Good - Patient Summary/Data Consults: Consultations 09/27/17 06:24 Consult to Physician [CONS] Routine OT Evaluation and Treatment [CONS] Routine 09/27/17 06:27 PT Evaluation and Treatment [CONS] Routine - Patient Instructions Diet: Usual Diet as Tolerated Activity: Apply Ice, As Tolerated, Elevate Extremity, Full Weight Bearing Driving: Do Not Drive Showering/Bathing: May Shower Wound/Incision Care: Keep Operative Site/Wound Site Clean and Dry, Do NOT Change Dressing Notify Provider of: Fever, Increased Pain, Swelling and Redness, Drainage, Nausea and/or Vomiting Other/Special Instructions: Please get up and moving around every hour while awake. This helps to prevent blood clots. Please use your walker and have help as needed. Take a 325mg ASPIRIN TWICE DAILY. This also helps to prevent blood clots. The aspirin is being used for blood clot prevention and not for pain management, so please do not miss a dose of the medication. Do the exercises you were taught in the Hospital. Schedule for P.T. Use the pain medication as needed. The medication may cause drowsiness and constipation. Contact your primary care provider for instructions if you are constipated. You may use a stool softener like docusate sodium or Colace 100mg twice daily and/or a laxative like Miralax daily for constipation. Use the ice machine often. Elevate the limb to decrease swelling. Keep the Mepilex dressing in place until follow-up at the Clinic. Notify the Clinic if the dressing is saturated. Wear the BRAD hose during the day and you may remove these at night. Eat a diet high in protein as this well help with healing. Schedule an appointment with your primary care provider for 'routine post-op care'. Call the Clinic with questions or concerns - [phone]. - Discharge Plan Prescriptions/Med Rec: Acetaminophen/oxyCODONE [Percocet 325-5 MG] 1 - 2 tab PO Q4H PRN #60 tablet PRN Reason: Pain Aspirin [Ecotrin] 325 mg PO BID #70 tab.ec Cyclobenzaprine [Flexeril] 10 mg PO TID PRN #40 tablet PRN Reason: Spasms Famotidine 20 mg PO DAILY #60 tablet Home Medications: Home Meds Cholecalciferol (Vitamin D3) [Vitamin D3] 1,000 units PO DAILY 09/26/17 [History ] Fluticasone Propionate [Flonase] 1 spray NASBOTH DAILY 09/26/17 [History] Omeprazole Magnesium [Prilosec Otc] 20 mg PO Q48H 09/26/17 [History] Acetaminophen/oxyCODONE [Percocet 325-5 MG] 1 - 2 tab PO Q4H PRN #60 tablet 10/03 [Rx] Aspirin [Ecotrin] 325 mg PO BID #70 tab.ec 09/28/17 [Rx] Cyclobenzaprine [Flexeril] 10 mg PO TID PRN #40 tablet 09/28/17 [Rx] Docusate Sodium [Colace] 100 mg PO BID cap 09/28/17 [Rx] Famotidine 20 mg PO DAILY #60 tablet 09/28/17 [Rx] Patient Handouts: Total Knee Replacement, Care After, [id number], Total Knee Replacement, [id number] Referrals: Magda Leigh PA-C [Physician [employer]] - 10/05/17 8:15 am (Please follow up with Magda Leigh on 10/05/17 at 8:15AM, and a second follow up apt. 10/13/17 at 0915.) - Patient Data Vitals - Most Recent: Last Vital Signs Temp 98.8 F 09/28/17 12:30 Pulse 79 09/28/17 12:30 Resp 18 09/28/17 12:30 BP 107/71 09/28/17 12:30 Pulse Ox 93 L 09/28/17 12:30 Weight - Most Recent: 207 lb Med Orders - Current: Current Medications Discontinued Medications Aspirin (Ecotrin) 325 mg PO BID [facility] Last Admin: 09/28/17 08:32 Dose: 325 mg Bisacodyl (Dulcolax) 5 mg PO DAILY PRN PRN Reason: Constipation Bupivacaine HCl (Marcaine 0.25%) Confirm Administered Dose 30 ml .ROUTE .STK- MED ONE Stop: 09/27/17 06:19 Last Admin: 09/27/17 08:28 Dose: 30 ml Cefazolin Sodium (Ancef) Confirm Administered Dose 2 gm .ROUTE .STK-MED ONE Stop: 09/27/17 06:19 Last Admin: 09/27/17 08:23 Dose: 2 gm Cefazolin Sodium (Ancef) Confirm Administered Dose 2 gm .ROUTE .STK-MED ONE Stop: 09/27/17 06:48 Cholecalciferol (Vitamin D3) 1,000 units PO DAILY [facility] Last Admin: 09/28/17 08:32 Dose: 1,000 units Morphine Sulfate 8 mg/Epinephrine HCl 0.3 mg/Cefuroxime Sodium 750 mg/Ketorolac Tromethamine 30 mg/Sodium Chloride 27.9 ml 0 mg .XX ONETIME ONE Stop: 09/27/17 07:31 Last Admin: 09/27/17 21:18 Dose: Not Given Cyclobenzaprine HCl (Flexeril) 10 mg PO TID PRN PRN Reason: Spasms Last Admin: 09/28/17 01:06 Dose: 10 mg Diphenhydramine HCl (Benadryl) 25 mg IVPUSH Q4H PRN PRN Reason: Nausea Docusate Sodium (Colace) 100 mg PO BID [facility] Last Admin: 09/28/17 08:32 Dose: 100 mg Famotidine (Pepcid) 20 mg PO Q12H [facility] Last Admin: 09/28/17 05:54 Dose: 20 mg Famotidine (Pepcid) 20 mg PO BID [facility] Last Admin: 09/28/17 09:57 Dose: 20 mg Fentanyl (Sublimaze) Confirm Administered Dose 100 mcg .ROUTE .STK-MED ONE Stop: 09/27/17 06:47 Fentanyl (Sublimaze) 50 mcg IVPUSH Q5M PRN PRN Reason: PAIN Stop: 09/27/17 11:00 Flunisolide (Nasalide Nasal [place]) 0 ml NASBOTH BID [facility] Last Admin: 09/28/17 08:32 Dose: 2 spray Lactated Ringer's (Ringers, Lactated) 1,000 mls @ 125 mls/hr IV ASDIRECTED [facility] Last Admin: 09/27/17 06:35 Dose: 125 mls/hr Lactated Ringer's (Ringers, Lactated) Confirm Administered Dose 1,000 mls @ as directed .ROUTE .STK-MED ONE Stop: 09/27/17 07:37 Lactated Ringer's (Ringers, Lactated) Confirm Administered Dose 1,000 mls @ as directed .ROUTE .STK-MED ONE Stop: 09/27/17 09:03 Cefazolin Sodium/Dextrose 2 gm (/ Premix) 50 mls @ 100 mls/hr IV Q8H [facility] Stop: 09/28/17 07:29 Last Admin: 09/28/17 06:00 Dose: 100 mls/hr Iodine (Iodine 2% Mild Tincture) Confirm Administered Dose 30 ml .ROUTE .STK- MED ONE Stop: 09/27/17 06:19 Last Admin: 09/27/17 08:19 Dose: 18 ml Ketorolac Tromethamine (Toradol) 15 mg IVPUSH Q6H PRN PRN Reason: Pain Last Admin: 09/27/17 23:58 Dose: 15 mg Lidocaine/Sodium Bicarbonate (Buffered Lidocaine 1% In Ns 8.4%) 0.25 ml IV ONETIME PRN PRN Reason: Prior to IV Start Last Admin: 09/27/17 06:35 Dose: 0.25 ml Magnesium Hydroxide (Milk Of Magnesia) 30 ml PO BID PRN PRN Reason: Constipation Midazolam HCl (Versed 1 Mg/Ml) Confirm Administered Dose 2 mg .ROUTE .STK-MED ONE Stop: 09/27/17 06:47 Morphine Sulfate (Morphine) 2 mg IVPUSH Q2H PRN PRN Reason: Breakthrough Pain Morphine Sulfate (Duramorph Pf) Confirm Administered Dose 1 mg .ROUTE .STK-MED ONE Stop: 09/27/17 06:39 Naloxone HCl (Narcan) 0.1 mg IVPUSH Q5M PRN PRN Reason: Oversedation Ondansetron HCl (Zofran) 4 mg IVPUSH Q6H PRN PRN Reason: Nausea/Vomiting Last Admin: 09/27/17 23:56 Dose: 4 mg Ondansetron HCl (Zofran) Confirm Administered Dose 4 mg .ROUTE .STK-MED ONE Stop: 09/27/17 06:46 Oxycodone/Acetaminophen (Percocet 325-5 Mg) 1 - 2 tab PO Q4H PRN PRN Reason: Pain Last Admin: 09/28/17 14:23 Dose: 2 tab Pantoprazole Sodium (Protonix) 40 mg PO Q48H NA Last Admin: 09/27/17 13:04 Dose: 40 mg Propofol (Diprivan 20 Ml) Confirm Administered Dose 200 mg .ROUTE .STK-MED ONE Stop: 09/27/17 06:47 Propofol (Diprivan 20 Ml) Confirm Administered Dose 200 mg .ROUTE .STK-MED ONE Stop: 09/27/17 07:45 Propofol (Diprivan 20 Ml) Confirm Administered Dose 200 mg .ROUTE .STK-MED ONE Stop: 09/27/17 08:19 Propofol (Diprivan 20 Ml) Confirm Administered Dose 200 mg .ROUTE .STK-MED ONE Stop: 09/27/17 08:55 Senna (Senna) 8.6 mg PO BID PRN PRN Reason: Constipation Sodium Chloride (Saline Flush) 10 ml FLUSH ASDIRECTED PRN PRN Reason: Keep Vein Open Tranexamic Acid (Cyklokapron) Confirm Administered Dose 1,000 mg .ROUTE .STK- MED ONE Stop: 09/27/17 06:19 Last Admin: 09/27/17 08:36 Dose: 1,000 mg Vancomycin HCl (Vancomycin) Confirm Administered Dose 1 gm .ROUTE .STK-MED ONE Stop: 09/27/17 06:19 Last Admin: 09/27/17 08:30 Dose: 1 gm *Q Meaningful Use (DIS) - VTE *Q VTE Criteria *Q: - Stroke *Q Stroke Criteria *Q: - AMI *Q AMI Criteria *Q:
--- NOTE | 2017-10-05 16:41 | PCM.OPNOTE ---
Addendum entered and electronically signed by Aden Carvalho MD 10/05/17 16:21 : [id number] Original Note: - General Post-Op/Procedure Note Date of Surgery/Procedure: 09/27/17 Operative Procedure(s): left total knee arthroplasty Pre Op Diagnosis: left knee osteoarthrosis Post-Op Diagnosis: Same Anesthesia Technique: Local, MAC, Spinal Primary Surgeon: Aden Carvalho Anesthesia Provider: Danilo Farnsworth Curator: Magda Leigh Curator: Yovana Trent EBL in mLs: 250 Complications: None Condition: Good
--- NOTE | 2017-10-05 16:41 | OR ---
DATE OF OPERATION: 09/27/2017 SURGEON: Aden Carvalho MD OPERATION PERFORMED: Left total knee arthroplasty. PREOPERATIVE DIAGNOSIS: Left total knee osteoarthrosis. POSTOPERATIVE DIAGNOSIS: Left total knee osteoarthrosis. ANESTHESIA: Local MAC with spinal. ANESTHESIA PROVIDER: Danilo Farnsworth CRNA. CARTOON ARTIST: Magda Leigh PA-C and Yovana Trent LPN. ESTIMATED BLOOD LOSS: 250 mL. COMPLICATIONS: None. CONDITION: Stable. IMPLANTS: 1. Monserrat size 7 press-fit PS femur. 2. Bryant size 7 press-fit tibia. 3. Bryant size 7, 9 mm PS X3 polyethylene. 4. Bryant size 35 x 10 mm press-fit patella. DESCRIPTION OF PROCEDURE: The patient was identified in the preop holding area. Proper site was marked and identified by the surgeon. The patient was taken back to the operating theater. After adequate anesthesia, the patient's left lower extremity had a nonsterile tourniquet applied and it was then sterilely prepped and draped in the usual sterile fashion. OR timeout was performed. The patient received 2 g IV Ancef. At this time, left lower extremity was exsanguinated. Tourniquet was insufflated to 300 mmHg. Standard medial parapatellar incision was made. Medial parapatellar arthrotomy was created. Deep fibers of the MCL were raised and anterior fat pad was resected. At this time, attention was turned to the patella. Patella measured 26, it was resected to a 16 patella. Drill holes were then drilled and found to be in adequate position. The drill was then drilled in the distal femur and the intramedullary distal femoral cutting guide was then placed. 8 mm was resected off the distal femur and was found to be an adequate resection. Sizing guide was placed. It was found to be a size 8 mm dissected off the distal femur that was shown on the implant record at the beginning of this dictation. The drill holes were drilled for the epicondylar axis using Whitesides line and epicondyles as reference. At this time, the 4-in - 1 cutting block was placed. An anterior posterior and anterior and posterior chamfer cuts were then completed. The correct size box cut was then placed and the box cut was completed and found to be an adequate resection. Attention was turned to the tibia. The posterior medial lateral retractors were placed. The extramedullary tibial guide was placed. It was placed in the old footprint of the ACL. It was aligned with the center of the ankle and 0 degrees of slope, 9 mm was then resected off the unaffected lateral side. There was found to be an acceptable reduction. At this time, posterior osteophytes were removed along with medial and lateral meniscus. A trial implant was placed with a correct sized tibia that was mentioned at the beginning of the dictation. A size 9 trial spacer was then placed. The patient's knee was brought through range of motion. The patella was tracking centrally and was stable to varus and valgus stress. Alignment was found to be roughly at 0 degrees. The tibia was stamped and drilled in proper rotation. The universal tibial base plate was impacted into place. Next, the Bryant size 7 press-fit PS femur was impacted into place and the Monserrat size 7, 9 mm PS X3 polyethylene was placed. The patient's knee was brought into full extension. The patella was then cemented in place at this time. Tourniquet was deflated. One liter dilute Betadine solution was irrigated through the knee along with 3 L of pulse lavage irrigation with Ancef. Periarticular injection was then completed. The patient's knee was brought through a range of motion. The knee was found to be stable to varus valgus stress, the patella was tracking centrally with full range of motion. At this time, a #2 barbed suture was used for closure of the medial parapatellar arthrotomy. Topical tranexamic acid was placed. 2-0 Vicryl was used subcutaneously, a running 3-0 Monocryl was used subcuticularly. The patient tolerated the procedure well and was sent to the PACU in stable condition. MMODAL /[id number] EWELINA
== END 2017-09-28 15:00 | disposition home or self-care (01) | DRG 302 ==
LOC: JD.OB 06:04 → JD.MS 06:04
PROVIDERS: ADMIT Orthopaedic Surgery; ATTEND Orthopaedic Surgery
PROC: 0SRD0J9 Replacement of Left Knee Joint with Synthetic Substitute, Cemented, Open Approach (ICD-10-PCS; principal; 2017-09-27)
DX: M17.12 Unilateral primary osteoarthritis, left knee (principal); J30.9 Allergic rhinitis, unspecified; E78.5 Hyperlipidemia, unspecified; Z88.1 Allergy status to other antibiotic agents; Z79.899 Other long term (current) drug therapy; H54.7 Unspecified visual loss
CPT/HCPCS: 01402; 36415; 73560-26-LT; 73560-LT; 80053; 85027; 87641; 94762; 97110-GP; 97116-GP; 97161-GP; 97165-GO; 97535-GO; A9270-GY; C1776; J0171; J0690; J0697; J1885; J2250; J2270; J2274; J2405; J2704; J3010; J3370; J3490; J7120

== ENCOUNTER → 2017-11-08 | Day surgery (SDC) | payer BC ==
[~2017-11-08] MED LIST changes: +Ketamine 500 mg/10 ML MDV ONE; +Lidocaine 1% 4 ML ONE; +Meperidine PF 50 MG/ML Syringe ONE; +Midazolam 1 MG/ML 2 ML SDV ONE; +Propofol 200 MG/20 ML SDV ONE; +Ropivacaine 0.5% 5 MG/ML 30 ML SDV ONE; +fentaNYL 100 MCG/2 ML SDV ONE
--- NOTE | 2017-11-08 07:56 | PCM48HPAN ---
Post Anesthesia Note - EVALUATION WITHIN 48HRS OF ANESTHETIC Vital Signs in Normal Range: Yes Patient Participated in Evaluation: Yes Respiratory Function Stable: Yes Airway Patent: Yes Cardiovascular Function Stable: Yes Hydration Status Stable: Yes Pain Control Satisfactory: Yes Nausea and Vomiting Control Satisfactory: Yes Mental Status Recovered: Yes
--- NOTE | 2017-11-08 08:16 | PCM.PREANE ---
Preanesthetic Assessment - Procedure Proposed Procedure: L knee manipulation - Anesthesia/Transfusion/Family Hx Anesthesia History: Prior Anesthesia Without Reaction Family History of Anesthesia Reaction: No Transfusion History: No Prior Transfusion(s) - Review of Systems General: No Symptoms Cardiovascular: No Symptoms Gastrointestinal: No Symptoms Neurological: No Symptoms Other: Reports: None - Physical Assessment NPO Status Date: 11/07/17 NPO Status Time: 23:00 O2 Sat by Pulse Oximetry: 94 Respiratory Rate: 18 Vital Signs: Last Vital Signs Temp 36.9 C 11/08/17 07:45 Pulse 86 11/08/17 07:45 Resp 18 11/08/17 07:45 BP 130/76 11/08/17 07:45 Pulse Ox 94 L 11/08/17 07:45 Height: 1.88 m Weight: 90.718 kg ASA Class: 1 Mental Status: Alert & Oriented x3 Airway Class: Mallampati = 2 Dentition: Reports: Normal Dentition Thyro-Mental Finger Breadths: 3 Mouth Opening Finger Breadths: 3 ROM/Head Extension: Full Lungs: Clear to Auscultation, Normal Respiratory Effort Cardiovascular: Regular Rate, Regular Rhythm - Allergies Allergies/Adverse Reactions: Allergies Allergy/AdvReac Type Severity Reaction Status Date / Time amoxicillin Allergy Fever Verified 11/08/17 07:09 - Blood Blood Available: No Product(s) Available: None - Anesthesia Plan Pre-Op Medication Ordered: None - Acknowledgements Anesthesia Type Planned: Regional Block (discussed post-procedure adductor canal block pending on pain), MAC Pt an Appropriate Candidate for the Planned Anesthesia: Yes Alternatives and Risks of Anesthesia Discussed w Pt/Guardian: Yes Pt/Guardian Understands and Agrees with Anesthesia Plan: Yes PreAnesthesia Questionnaire HEENT History: Reports: Allergic Rhinitis, Impaired Vision, Other (See Below) Other HEENT History: otitis externa, wears glasses Cardiovascular History: Reports: High Cholesterol Respiratory History: Reports: Other (See Below) Other Respiratory History: bronchitis, cough Gastrointestinal History: Reports: None Genitourinary History: Reports: None 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: Reports: None Neurological History: Reports: Other (See Below) Other Neuro History: dizziness Psychiatric History: Reports: None Endocrine/Metabolic History: Reports: None Hematologic History: Reports: None Immunologic History: Reports: None Oncologic (Cancer) History: Reports: None Dermatologic History: Reports: None - Past Surgical History Head Surgeries/Procedures: Reports: None HEENT Surgical History: Reports: Naso-Sinus Surgery, Tonsillectomy Cardiovascular Surgical History: Reports: None Respiratory Surgical History: Reports: None GI Surgical History: Reports: Colonoscopy Male Surgical History: Reports: Vasectomy Endocrine Surgical History: Reports: None Musculoskeletal Surgical History: Reports: Other (See Below) Other Musculoskeletal Surgeries/Procedures:: foot surgery, knee surgery Dermatological Surgical History: Reports: None - SUBSTANCE USE Smoking Status *Q: Never Smoker Second Hand Smoke Exposure: No Recreational Drug Use History: No - HOME MEDS Home Medications: Home Meds Cholecalciferol (Vitamin D3) [Vitamin D3] 1,000 units PO DAILY 09/26/17 [History ] Fluticasone Propionate [Flonase] 1 spray NASBOTH DAILY 09/26/17 [History] Omeprazole Magnesium [Prilosec Otc] 20 mg PO Q48H 09/26/17 [History] Acetaminophen/oxyCODONE [Percocet 325-5 MG] 1 - 2 tab PO Q4H PRN #60 tablet 10/03 [Rx] Aspirin [Ecotrin] 325 mg PO BID #70 tab.ec 09/28/17 [Rx] Cyclobenzaprine [Flexeril] 10 mg PO TID PRN #40 tablet 09/28/17 [Rx] Famotidine 20 mg PO DAILY #60 tablet 09/28/17 [Rx] Docusate Sodium [Colace] 100 mg PO BID PRN 11/05/17 [History] - CURRENT (IN HOUSE) MEDS Current Meds: Current Medications Lactated Ringer's (Ringers, Lactated) 1,000 mls @ 125 mls/hr IV ASDIRECTED NA Stop: 11/08/17 18:00 Last Admin: 11/08/17 06:45 Dose: 125 mls/hr Lidocaine/Sodium Bicarbonate (Buffered Lidocaine 1% In Ns 8.4%) 0.25 ml IV ONETIME PRN PRN Reason: Prior to IV Start Stop: 11/08/17 18:00 Last Admin: 11/08/17 06:44 Dose: 0.25 ml Sodium Chloride (Saline Flush) 10 ml FLUSH ASDIRECTED PRN PRN Reason: Keep Vein Open Stop: 11/08/17 18:00 Discontinued Medications Fentanyl (Sublimaze) Confirm Administered Dose 100 mcg .ROUTE .STK-MED ONE Stop: 11/08/17 06:23 Lidocaine HCl (Xylocaine-Mpf 1%) Confirm Administered Dose 4 mls @ as directed .ROUTE .STK-MED ONE Stop: 11/08/17 06:33 Lidocaine HCl (Xylocaine-Mpf 1%) Confirm Administered Dose 4 mls @ as directed .ROUTE .STK-MED ONE Stop: 11/08/17 06:34 Ketamine HCl (Ketalar) Confirm Administered Dose 500 mg .ROUTE .STK-MED ONE Stop: 11/08/17 06:23 Meperidine HCl (Demerol) Confirm Administered Dose 50 mg .ROUTE .ST-MED ONE Stop: 11/08/17 07:40 Midazolam HCl (Versed 1 Mg/Ml) Confirm Administered Dose 2 mg .ROUTE .STK-MED ONE Stop: 11/08/17 06:23 Propofol (Diprivan 20 Ml) Confirm Administered Dose 200 mg .ROUTE .STK-MED ONE Stop: 11/08/17 06:23 Ropivacaine (Naropin 0.5%) Confirm Administered Dose 30 ml .ROUTE .STK-MED ONE Stop: 11/08/17 07:15
--- NOTE | 2017-11-08 08:20 | PCM.SN ---
- Free Text/Narrative Note: Left selective femoral nerve block at the adductor canal for post-procedure pain control Start: 729 End: 739 Chart reviewed. Consent signed. Questions answered. Appropriate monitors applied. Time out performed. Left mid-shaft femur evaluated with ultrasound. Scanning medially femur, I was able to identify the femoral artery in the adductor canal. The saphenous nerve was lateral to the artery. The skin was prepped lateral to the ultrasound probe with chlorahexadine. Skin localized with 3mL of 1% lidocaine. The 21ga 4 insulated block needle was inserted under direct ultrasound guidance into the adductor canal. 20mL of 0.5% ropivacaine with 1:200,000 epinephrine was injected cirmcumferentially about the nerve with intermittent negative aspiration. Patient tolerated the procedure well. See pictures on progress note and vital signs on nurses notes. Block completed post-procedure. Rivas Mcdowell CRNA
--- NOTE | 2017-11-08 08:27 | CR ---
Left knee: Two fluoroscopic spot views were obtained to the left knee utilizing C-arm device. Knee prosthesis is seen. Components are aligned. Underlying bony structures are intact. Fluoroscopy time given as 3.5 seconds. Impression: 1. Incidental findings. Diagnostic code #2
--- NOTE | 2017-11-09 23:14 | OR ---
DATE OF OPERATION: 11/08/2017 SURGEON: Aden Carvalho MD OPERATION PERFORMED: Left total knee arthroplasty manipulation. 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 POSTOPERATIVE DIAGNOSIS: Left total knee arthroplasty ankylosis. ANESTHESIA: Conscious sedation. ANESTHESIA PROVIDER: Rivas Mcdowell. SLIP TENDER: None. COMPLICATIONS: None. CONDITION: Stable. DESCRIPTION OF PROCEDURE: The patient was identified in the preop holding area. Proper site was marked and identified by the surgeon. The patient was taken back to the operating theater where after adequate anesthesia, the patient's left lower extremity had pre-manipulation motion measured. The patient had 2 to 45 degrees of motion for flexion at this time. The left knee was manipulated, was very easily manipulated into flexion, I was able to get up to 134 degrees of flexion. The patient had full 2 to 134 degrees of flexion after the manipulation. There was no significant resistance especially after getting past the 45-degree point. At this time, the patient had full ease of range of motion. C-arm fluoroscopy was used to make sure that the implants were well seated. They were well seated with no signs of osteolysis or loosening. The patient, at this time, was sent to the PACU in stable condition. ESTIMATED BLOOD LOSS: MMODAL /[id number]
== END | disposition home or self-care (01) ==
LOC: JD.SDS 06:24
PROVIDERS: ATTEND Orthopaedic Surgery
DX: M24.662 Ankylosis, left knee (principal); E78.00 Pure hypercholesterolemia, unspecified; E78.5 Hyperlipidemia, unspecified; J30.9 Allergic rhinitis, unspecified; Z79.51 Long term (current) use of inhaled steroids; Z79.899 Other long term (current) drug therapy; Z80.3 Family history of malignant neoplasm of breast; Z80.9 Family history of malignant neoplasm, unspecified; Z82.49 Family history of ischemic heart disease and other diseases of the circulatory system; Z88.0 Allergy status to penicillin; Z98.52 Vasectomy status; Z96.652 Presence of left artificial knee joint; Z90.49 Acquired absence of other specified parts of digestive tract; Z98.890 Other specified postprocedural states
CPT/HCPCS: 27570; 76000; J2175; J2250; J2795; J3010; J7120; 01400; J2001; J2704

== ENCOUNTER 2021-08-19 06:45 | Day surgery (SDC) | payer BC ==
[~2021-08-19 06:45] MED LIST changes: -Ketamine 500 mg/10 ML MDV ONE; -Lidocaine 1% 4 ML ONE; +Lidocaine 1%/Sod Bicarbonate in NS 8.4% 1 ML Syringe IDERM PRN; -Lidocaine 1%/Sod Bicarbonate in NS 8.4% 1 ML Syringe IV PRN; -Meperidine PF 50 MG/ML Syringe ONE; -Midazolam 1 MG/ML 2 ML SDV ONE; -Propofol 200 MG/20 ML SDV ONE; -Ropivacaine 0.5% 5 MG/ML 30 ML SDV ONE; -fentaNYL 100 MCG/2 ML SDV ONE
[2021-08-19] MEDS ORDERED: fentaNYL 100 MCG/2 ML SDV ONE (07:06)
[2021-08-19] MEDS ORDERED: Lidocaine 1% 4 ML ONE (07:06)
[2021-08-19] MEDS ORDERED: Propofol 200 MG/20 ML SDV ONE ×2 (07:06→08:04)
--- NOTE | 2021-08-19 07:17 | PCM.PREANE ---
Preanesthetic Assessment - Anesthesia/Transfusion/Family Hx Anesthesia History: Prior Anesthesia Without Reaction Family History of Anesthesia Reaction: No Transfusion History: No Prior Transfusion(s) Intubation History: Unknown - Review of Systems General: No Symptoms Pulmonary: No Symptoms Cardiovascular: No Symptoms Gastrointestinal: No Symptoms Neurological: No Symptoms Other: Reports: Thyroid Problems - Physical Assessment NPO Status Date: 08/19/21 NPO Status Time: 04:30 ASA Class: 2 Mental Status: Alert & Oriented x3 Airway Class: Mallampati = 1 Dentition: Reports: Normal Dentition ROM/Head Extension: Full Lungs: Clear to Auscultation, Normal Respiratory Effort - Allergies Allergies/Adverse Reactions: Allergies Allergy/AdvReac Type Severity Reaction Status Date / Time No Known Allergies Allergy Verified 08/18/21 16:52 - Acknowledgements Anesthesia Type Planned: MAC Pt an Appropriate Candidate for the Planned Anesthesia: Yes Alternatives and Risks of Anesthesia Discussed w Pt/Guardian: Yes Pt/Guardian Understands and Agrees with Anesthesia Plan: Yes PreAnesthesia Questionnaire HEENT History: Reports: Allergic Rhinitis, Impaired Vision, Other (See Below) Other HEENT History: otitis externa, wears glasses Cardiovascular History: Reports: High Cholesterol Respiratory History: Reports: Other (See Below) Other Respiratory History: bronchitis, cough Gastrointestinal History: Reports: GERD Genitourinary History: Reports: None ELECTRONICS TECHNOLOGY 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 History: Reports: None Musculoskeletal History: Reports: Osteoarthritis Neurological History: Reports: Other (See Below) Other Neuro History: dizziness Psychiatric History: Reports: None Endocrine/Metabolic History: Reports: None Hematologic History: Reports: None Immunologic History: Reports: None Oncologic (Cancer) History: Reports: None Dermatologic History: Reports: None - Infectious Disease History Infectious Disease History: Reports: None - Past Surgical History Head Surgeries/Procedures: Reports: None HEENT Surgical History: Reports: Naso-Sinus Surgery, Tonsillectomy Cardiovascular Surgical History: Reports: None Respiratory Surgical History: Reports: None GI Surgical History: Reports: Colonoscopy Male Surgical History: Reports: Vasectomy Endocrine Surgical History: Reports: None Neurological Surgical History: Reports: None Musculoskeletal Surgical History: Reports: Knee Replacement, Other (See Below) Other Musculoskeletal Surgeries/Procedures:: foot surgery, knee surgery Oncologic Surgical History: Reports: Bone Marrow Transplant Dermatological Surgical History: Reports: None - SUBSTANCE USE Tobacco Use Status *Q: Never Tobacco User Recreational Drug Use History: No - HOME MEDS Home Medications: Home Meds Levothyroxine Sodium [Levothyroxine] 100 mcg PO DAILY 08/18/21 [History] - CURRENT (IN HOUSE) MEDS Current Meds: Current Medications Lactated Ringer's (Ringers, Lactated) 1,000 mls @ 125 mls/hr IV ASDIRECTED NA Stop: 08/19/21 23:00 Lidocaine/Sodium Bicarbonate (Lidocaine 1%/Sod Bicarbonate In Ns 8.4% 1 Ml Syringe) 0.25 ml IDERM ONETIME PRN PRN Reason: Prior to IV Start Stop: 08/19/21 23:00 Sodium Chloride (Sodium Chloride 0.9% 10 Ml Syringe) 10 ml FLUSH ASDIRECTED PRN PRN Reason: Keep Vein Open Stop: 08/19/21 23:00 Discontinued Medications Fentanyl (Fentanyl 100 Mcg/2 Ml Sdv) Confirm Administered Dose 100 mcg .ROUTE .STK-MED ONE Stop: 08/19/21 07:07 Lidocaine HCl (Xylocaine-Mpf 1%) Confirm Administered Dose 4 mls @ as directed .ROUTE .STK-MED ONE Stop: 08/19/21 07:07 Propofol (Propofol 200 Mg/20 Ml Sdv) Confirm Administered Dose 200 mg .ROUTE .STK-MED ONE Stop: 08/19/21 07:07
--- NOTE | 2021-08-19 07:48 | PCM.PRNOTE ---
- Free Text/Narrative Note: Date: 08/19/2021 Procedures: diagnostic esophagogastroduodenoscopy, screening colonoscopy History: chronic GERD with dysphagia and PPI intolerance, last colonoscopy 10 years ago with no abnormal findings Endoscopist: Cristopher Santana MD Findings: significant gross reflux esophagitis with apparent metaplastic changes, sliding hiatal hernia. mild inflammatory change in proximal duodenum. Bowel prep was excellent, cecum reached, no polyps or other pathology identified. Detailed Report: The patient was taken to the endoscopy suite and placed in left lateral decubitus position. Time out was performed and monitored anesthesia care was initiated. A bite block was placed. The endoscope was inserted into the mouth and advanced to the duodenum. The mucosa of the duodenal bulb appeared mildly inflamed; a mucosal sample was obtained from the bulb with cold forceps. The scope was withdrawn into the stomach. The pylorus, antrum, body and fundus appeared normal, with no evidence of inflammation or ulceration. A small polyp in the mid-body was biopsied. A sample of mucosa was biopsied from the antrum. On retroflexion, a sliding hiatal hernia was apparent, measuring about 2 cm in width. The scope was withdrawn into the distal esophagus. 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 Several biopsies of the apparent Montes segment were obtained with forceps. Air was suctioned from the stomach. As the scope was withdrawn the remained of the esophagus was inspected which appeared normal. The vocal cords were briefly visualized and appeared grossly normal. Next, attention was turned to colonoscopy. The anus appeared normal and digital rectal exam was unremarkable. The colonoscope was inserted and advanced to the cecum. The appendiceal orifice was not obvious but the ileocecal junction was well visualized. The prep was excellent. The scope was slowly withdrawn and mucosal surfaces carefully inspected. No polyps were identified. No pathology was noted on retroflexion within the rectum. Air was suctioned from the distal colon and rectum prior to withdrawal of the scope. The patient tolerated the procedure well.
[2021-08-19] MEDS ORDERED: Lactated Ringers 1,000 ML ONE (08:06)
--- NOTE | 2021-08-19 08:47 | PCM48HPAN ---
Post Anesthesia Note - EVALUATION WITHIN 48HRS OF ANESTHETIC Vital Signs in Normal Range: Yes Patient Participated in Evaluation: Yes Respiratory Function Stable: Yes Airway Patent: Yes Cardiovascular Function Stable: Yes Hydration Status Stable: Yes Pain Control Satisfactory: Yes Nausea and Vomiting Control Satisfactory: Yes Mental Status Recovered: Yes Vital Signs: Last Vital Signs Temp 36.6 C 08/19/21 07:00 Pulse 72 08/19/21 07:00 Resp 16 08/19/21 07:00 BP 126/83 08/19/21 07:00 Pulse Ox 98 08/19/21 07:00
== END 2021-08-19 09:10 | disposition home or self-care (01) ==
LOC: JD.SDS 06:45
PROVIDERS: ATTEND Surgery
DX: Z12.11 Encounter for screening for malignant neoplasm of colon (principal); K22.70 Barrett's esophagus without dysplasia; K31.A0 Gastric intestinal metaplasia, unspecified; K21.00 Gastro-esophageal reflux disease with esophagitis, without bleeding; K44.9 Diaphragmatic hernia without obstruction or gangrene; K31.7 Polyp of stomach and duodenum; E78.5 Hyperlipidemia, unspecified; Z98.890 Other specified postprocedural states
CPT/HCPCS: 43239; 45378; J2704; J3010; J7120; 00813